=== PATIENT | female | born 1965 | race Two or more races ===

== ENCOUNTER 2024-09-06 12:09 | Emergency (ER) | payer OTHER ==
[~2024-09-06] VITALS: Ht 165.1 cm; Wt 61.2 kg
[2024-09-06] MEDS ORDERED: [UNRECOGNIZED DRUG - OTHER] BUCAL (12:51)
[2024-09-06] MEDS ORDERED: ORALONE5 GM TOP (12:51)
[2024-09-06] MEDS ORDERED: CLIMARA1 EAC2 TD (12:52)
[2024-09-06] MEDS ORDERED: CLOBETASOL EMOL15 GM (12:52)
[2024-09-06] MEDS ORDERED: ACYCLOVIR5 GM (12:53)
[2024-09-06 17:16] LABS: HEMATOCRIT 42.9 % (36.0-45.00); HEMOGLOBIN 14.4 g/dL (12.0-15.00); MEAN CELL VOLUME 96.5 fL (80.00-100.00); MEAN CORPUSCULAR HEMOGLOBIN 32.4 pg (27.00-32.0); MEAN CORPUSCULAR HGB CONC 33.6 g/dl (32.0-36.0); PLATELET COUNT 265 K/uL (150-450); RED BLOOD COUNT 4.45 M/uL (4.00-6.00); RED CELL DISTRIBUTION WIDTH 12.7 % (11.5-14.5)
[2024-09-06 17:29] LABS: BILIRUBIN TOTAL 0.34 mg/dL (0.3-1.2); CALCIUM 10.1 mg/dL (8.5-10.1); CREATININE SERUM 0.78 mg/dL (0.55-1.02); GFR 75.85; GLOBULINA 3.4 G/DL (2.4-3.5); POTASSIUM 4.66 mEq/L (3.5-5.1); TOTAL PROTEIN 7.4 gm/dL (6.4-8.2)
[2024-09-06] MEDS ORDERED: EMERGEN-C 500500 MG PO (18:34)
[2024-09-06] MEDS ORDERED: NORFLEX100MG PO (18:35)
[2024-09-06] MEDS ORDERED: GLYCOTROL CAPS1 EACH PO (18:35)
== END 2024-09-06 19:05 | disposition home or self-care (01) ==
LOC: ER 12:11
DX: R45.89 Other symptoms and signs involving emotional state (principal); R05.9 Cough, unspecified; Z20.822 Contact with and (suspected) exposure to COVID-19

== ENCOUNTER 2024-12-27 21:11 | Emergency (ER) | payer OTHER ==
[~2024-12-27] VITALS: Ht 162.6 cm; Wt 61.2 kg
[~2024-12-27 21:11] MED LIST: ACYCLOVIR5 GM; CLIMARA1 EAC2 TD; CLOBETASOL EMOL15 GM; EMERGEN-C 500500 MG PO; GLYCOTROL CAPS1 EACH PO; NORFLEX100MG PO; ORALONE5 GM TOP; [UNRECOGNIZED DRUG - OTHER] BUCAL
[2024-12-27] MEDS ORDERED: PREVACID30 MG PO (21:14)
[2024-12-27] MEDS ORDERED: RAYOS5 MG PO (21:14)
[2024-12-27] MEDS ORDERED: PEPCID AC20 MG PO (21:14)
[2024-12-27 23:05] LABS: URINE APPEARANCE Cloudy; URINE BILIRRUBIN Negative (NEGATIVE); URINE BLOOD Negative; URINE COLOR Dark Yellow; URINE GLUCOSE Negative (NEGATIVE); URINE KETONE Trace (NEGATIVE); URINE LEUKOCYTE Small; URINE NITRATE Negative
[2024-12-27 23:09] LABS: URINE BACTERIA 794.3 uL (0.0-1933); URINE CAST 11.63 uL (0.0-1.40); URINE EPITHELIAL CELLS 41.6 uL (0.0-38.8); URINE RBC 6.1 uL (0.0-20.8); URINE WBC 120.4 uL (0.0-23.2)
[2024-12-27 23:12] LABS: HEMATOCRIT 40.3 % (36.0-45.00); HEMOGLOBIN 13.7 g/dL (12.0-15.00); MEAN CORPUSCULAR HEMOGLOBIN 32.2 pg (27.00-32.0); MEAN CORPUSCULAR HGB CONC 33.9 g/dl (32.0-36.0); PLATELET COUNT 249 K/uL (150-450); RED BLOOD COUNT 4.24 M/uL (4.00-6.00); RED CELL DISTRIBUTION WIDTH 13.9 % (11.5-14.5)
[2024-12-27 23:23] LABS: URINE PROTEIN 100 (NEGATIVE)
[2024-12-27 23:30] LABS: CALCIUM 8.3 mg/dL (8.5-10.1); CREATININE SERUM 1.11 mg/dL (0.55-1.02); GFR 50.31; POTASSIUM 3.11 mEq/L (3.5-5.1)
[2024-12-28] MEDS ORDERED: CEFTRIAXONE SODIUM 2,000 MG VIAL IV STA (04:13)
[2024-12-28] MEDS ORDERED: HYDROCODONE/CHLORPHEN P-STIREX 5 ML ML PO STA (04:13)
[2024-12-28] MEDS ORDERED: ACETAMINOPHEN 500 MG GEL..CAP PO STA (04:34)
== END 2024-12-28 05:57 | disposition home or self-care (01) ==
LOC: ER 21:14
PROVIDERS: General Practice
DX: R50.9 Fever, unspecified (principal); Z20.822 Contact with and (suspected) exposure to COVID-19